=== PATIENT | female | born 1955 | race Caucasian/White ===

== ENCOUNTER 2021-03-23 13:03 | Outpatient (CLI) | payer OTHER, SELFPAY ==
--- NOTE | 2021-03-23 13:00 | XR_ITS ---
WS: [id number] KUB, AP view, 03/23/2021 Clinical Data: STONES Comparison: None. Findings: No abnormal intraabdominal masses or calcifications are seen. There is no dilatated small bowel or ev idence of obstruction. There is a large amount of fecal material throughout the colon. There are clips in the right upper qu adrant from a colon cystectomy. There is a clip overlying the left side of the sacrum from surgery. XR/XR KUB [id number] Impression: Negative KUB.
== END 2021-03-23 13:04 | disposition home or self-care (01) ==
PROVIDERS: PCP Family Medicine; Visit Provider Urology
DX: N20.0 Calculus of kidney (principal); R31.0 Gross hematuria
CPT/HCPCS: 74018; 81003; 87086; 88112

== ENCOUNTER 2021-04-27 12:23 | Outpatient (CLI) | payer MEDICARE, SELFPAY ==
--- NOTE | 2021-04-27 12:30 | CT_ITS ---
WS: [id number] CT ABDOMEN PELVIS TECHNIQUE: Noncontrast CT of the abdomen and contrast-enhanced CT of the abdomen and pelvis with jodie nal and sagittal reformatted images. CLINICAL INFORMATION: GROSS HEMATURIA COMPARISON: CT July 07, 2020 DLP: 3086.[address] scans at [facility] use at least one of these dose optimization techniques: automated e xposure control; mA and/or kV adjustment per patient size (includes targeted exams where dose is matc hed to clinical indication); or iterative reconstruction. FINDINGS: Diffuse fatty infiltration of the liver. Normal portal vein and splenic vein. Normal spleen. Slight a telectasis in the lung bases. Normal GE junction. Prior cholecystectomy. Left adrenal nodules unchanged from previous likely adenomas largest measuring 14 mm. No obstructing renal or ureteral calculi. No hydronephrosis in either kidney. Normal renal parenchyma l enhancement. A few tiny right renal cysts. Tiny exophytic left renal cyst measuring 5 mm. Exophytic left lower pole renal cyst measuring 11 mm. Normal sigmoid colon. No evidence of small or large bowel obstruction. Urine distended bladder. Bilat eral symmetric excretion on the delayed imaging. Small amount of contrast visualized in the bladder w hich otherwise appears normal. Aortic calcification. Normal caliber abdominal aorta. CT/CT abdomen pelvis wo/w [id number] IMPRESSION: 1. No obstructing renal or ureteral calculi. 2. Normal bilateral renal parenchymal enhancement with symmetric excretion. No hydronephrosis. 3. Bilateral renal cysts largest on the left measuring 11 mm and 5 mm. 4. Bladder is distended but otherwise normal in appearance. 5. Left adrenal adenomas unchanged since July 07, 2020 largest measuring 1 4 mm. 6. Hepatomegaly with diffuse fatty infiltration. 7. Prior cholecystectomy.
[2021-04-27] MEDS: iodixanol 320 mg/mL 100mL Btl IV (14:14)
== END 2021-04-27 12:24 | disposition home or self-care (01) ==
PROVIDERS: PCP Family Medicine; Visit Provider Urology
DX: R31.0 Gross hematuria (principal); Z90.49 Acquired absence of other specified parts of digestive tract; R16.0 Hepatomegaly, not elsewhere classified; K76.0 Fatty (change of) liver, not elsewhere classified; D35.02 Benign neoplasm of left adrenal gland; Q61.02 Congenital multiple renal cysts
CPT/HCPCS: 74178; 81003; 82365; 88300

== ENCOUNTER 2021-10-31 12:24 | Outpatient (CLI) | payer MEDICARE, SELFPAY ==
--- NOTE | 2021-10-31 12:15 | XR_ITS ---
WS: [id number] XR KUB [id number] REASON FOR EXAM: urolithiasis FINDINGS: No calcific densities identified overlying the kidneys, course of the ureters, or urinary bladder. No other significant abdominal or pelvic abnormality. XR/XR KUB [id number] IMPRESSION: No urinary tract calculi identified.
== END 2021-10-31 12:25 | disposition home or self-care (01) ==
PROVIDERS: PCP Family Medicine; Visit Provider Urology
DX: N20.9 Urinary calculus, unspecified (principal)
CPT/HCPCS: 74018; 81003

== ENCOUNTER 2021-11-07 08:47 | Outpatient (CLI) | payer MEDICARE, SELFPAY ==
--- NOTE | 2021-11-07 09:04 | XR_ITS ---
WS: [id number] KUB, AP view, 11/07/2021. Clinical Data: UROLITHIASIS Comparison: KUB, 10/31/2021. Findings: No abnormal intraabdominal masses or calcifications are seen. There is no dilatated small bowel or ev idence of obstruction. Fecal material and bowel gas obscure detail over both kidneys. The bladder is full. There are clips i n the right upper quadrant from a cholecystectomy. XR/XR KUB [id number] Impression: Negative KUB.
== END 2021-11-07 08:48 | disposition home or self-care (01) ==
PROVIDERS: PCP Family Medicine; Visit Provider Urology
DX: N20.9 Urinary calculus, unspecified (principal); N30.20 Other chronic cystitis without hematuria
CPT/HCPCS: 74018; 81003; 85025; 87086

== ENCOUNTER 2021-11-16 06:03 | Outpatient (CLI) | payer MEDICARE, SELFPAY ==
--- NOTE | 2021-11-16 07:00 | CT_ITS ---
WS: [id number] CT ABDOMEN AND PELVIS NONCONTRAST HISTORY: FLANK PAIN, bilateral, worse on the LEFT. TECHNIQUE: Imaging performed through the abdomen and pelvis. Coronal and sagittal reformats are submi tted. All CT scans at [facility] use at least one of these dose optimization techniques: auto mated exposure control; mA and/or kV adjustment per patient size (includes targeted exams where dose is matched to clinical indication); or iterative reconstruction. DLP: 1092.23 mGy.cm COMPARISON: 04/27/2021 Lower thorax: Mild pulmonary hyperexpansion. Very minimal groundglass attenuation at the lung bases a nd a few areas of subsegmental scarring or atelectasis. Heart size is normal. Slight increased amount of pericardial fat. Small hiatal hernia. Liver: Mild hepatic enlargement and steatosis. No mass identified on this unenhanced study. Gallbladder: Prior cholecystectomy. Pancreas: Normal size and attenuation. Normal pancreatic duct. No pancreatitis or mass. Spleen: Normal size spleen with a few granulomata. Adrenal glands: Normal RIGHT adrenal gland. There are several low-attenuation well-circumscribed mass is associated with the LEFT adrenal gland consistent with adenomas. These have been previously descr ibed. The largest measures 15 mm. Right kidney: No mass or obstruction. There is a tiny calcification which is nonobstructing in the lo wer pole. The ureter is not dilated. Left kidney: Hyperdense nodule measures 8 mm in the superior anterior kidney. This nodule was noted t o be a cyst on the prior study. This is probably a hemorrhagic cyst. Nonobstructing 4 mm calcificatio n lower pole LEFT kidney. Additional exophytic mass of slight increased density in the lower pole shree suring 14 mm. Slightly increased in size from 12 mm on the prior examination. Both of these LEFT michael l nodules were present on the study from 07/07/2020 and essentially stable. Aorta: Mild atherosclerosis abdominal aorta with no aneurysm. No free fluid, intraperitoneal air or significant lymphadenopathy. GI tract: Nondistended stomach. No small bowel dilatation. Mildly tortuous overlapping loops of colon . The appendix has been removed. There are few sigmoid diverticula without evidence for acute diverti culitis. Abdominal wall: Small umbilical hernia contains fat only. Pelvis: No free fluid or adenopathy. No pelvic mass. Urinary bladder is moderately distended. Osseous structures: Mild anterior wedging and loss of superior endplate of T11 consistent with a mini mal compression deformity or Schmorl's node. This is new since 04/27/2021. CT/CT abdomen pelvis wo con [id number] IMPRESSION: 1. No renal obstruction or ureteral stone. 2. There are very small bilateral nonobstructing renal calculi. 3. LEFT renal nodules noted to be cysts on prior imaging studies. There is inc reased density within the nodule in the superior pole LEFT kidney consistent wi th a hemorrhagic cyst or proteinaceous cyst. 4. Prior cholecystectomy and appendectomy. 5. Stable LEFT adrenal adenomas. 6. New minimal compression deformity of T11 versus Schmorl's node involving th e superior endplate. New since 04/27/2021.
== END 2021-11-16 06:04 | disposition home or self-care (01) ==
LOC: RAD 06:03
PROVIDERS: PCP Family Medicine; Visit Provider Nurse Practitioner Family
DX: N20.0 Calculus of kidney (principal); Z90.49 Acquired absence of other specified parts of digestive tract; Q42.8 Congenital absence, atresia and stenosis of other parts of large intestine; D35.02 Benign neoplasm of left adrenal gland
CPT/HCPCS: 74176; 81003

== ENCOUNTER → 2022-09-12 12:42 | Outpatient (BNVA) | payer MEDICARE, SELFPAY | PROVIDERS: PCP Family Medicine; Referring Provider Family Medicine; Visit Provider Nurse Practitioner Family | DX: D48.9 Neoplasm of uncertain behavior, unspecified (principal); L40.9 Psoriasis, unspecified; L82.0 Inflamed seborrheic keratosis; L81.4 Other melanin hyperpigmentation | CPT/HCPCS: 88305 ==

== ENCOUNTER → 2023-03-13 08:34 | Outpatient (BNVA) | payer MEDICARE, SELFPAY | PROVIDERS: PCP Family Medicine; Visit Provider Nurse Practitioner Family | DX: L40.0 Psoriasis vulgaris (principal) | CPT/HCPCS: 99214 ==

== ENCOUNTER → 2024-01-09 14:35 | Outpatient (BNVA) | payer MEDICARE, SELFPAY | PROVIDERS: PCP Family Medicine; Visit Provider Nurse Practitioner Family | DX: L40.0 Psoriasis vulgaris (principal); L81.4 Other melanin hyperpigmentation; D22.39 Melanocytic nevi of other parts of face; L57.8 Other skin changes due to chronic exposure to nonionizing radiation; L82.0 Inflamed seborrheic keratosis | CPT/HCPCS: 17110; 99214 ==

== ENCOUNTER → 2025-01-08 10:29 | Outpatient (BNVA) | payer MEDICARE, SELFPAY | PROVIDERS: PCP Family Medicine; Visit Provider Nurse Practitioner Family | DX: L40.0 Psoriasis vulgaris (principal); L57.8 Other skin changes due to chronic exposure to nonionizing radiation; D22.39 Melanocytic nevi of other parts of face; L81.4 Other melanin hyperpigmentation; L82.0 Inflamed seborrheic keratosis; L29.89 Other pruritus; Z78.9 Other specified health status | CPT/HCPCS: 17110; 99214 ==